=== PATIENT | male | born 1980 | race African-American/Black ===

== ENCOUNTER 2019-09-01 09:05 | Emergency (ER) | payer BC ==
[~2019-09-01] VITALS: Ht 182.9 cm; Wt 200.6 kg
[2019-09-01 09:21] VITALS: BP 185/114
[2019-09-01] MEDS ORDERED: BUPIVACAINE MPF 0.25% 10 ML VIAL. IJ ONE (09:30)
--- NOTE | 2019-09-01 09:41 | PHYS DOC ---
Past Medical History Past Medical History: No Pertinent History Past Surgical History: No Surgical History Smoking Status: Never Smoker Alcohol Use: None Adult General Chief Complaint Chief Complaint: HEADACHE HPI HPI Patient is a 38 year old male patient who presents with left ear, left jaw pain. States he had been at [facility] earlier this morning, had been given prescription for antibiotic for a dental monae. States he has had this discomfort on and off for the last week or so, has been taking 600 to 800 mg of Aleve every 6 hours, had been given a Tylenol at [facility] earlier, and had been given a Tylenol at [facility] earlier. States he does feel little bit better, however he does have some discomfort of his left ear still. States he was little concerned over his blood pressure when he was there, it was higher than he thought. States it was 168/states he has not has blood pressure checked for quite a long time before coming to [facility] or coming here today. States he does not have a primary care provider. Review of Systems Review of Systems Constitutional: Denies fever or chills [] HENT: Denies nasal congestion or sore throat states pain to left lower posterior tooth [] Respiratory: Denies cough or shortness of breath [] Cardiovascular: No additional information not addressed in HPI [] GI: Denies abdominal pain, nausea, vomiting, bloody stools or diarrhea [] : Denies dysuria or hematuria [] Musculoskeletal: Denies back pain or joint pain [] Integument: Denies rash or skin lesions [] Neurologic: Denies focal weakness or sensory changes, reports headache associated with his ear pain [] Endocrine: Denies polyuria or polydipsia [] All other systems were reviewed and found to be within normal limits, except as documented in this note. Current Medications Current Medications Current Medications Medications (Trade) Dose Ordered Sig/Laura Start Time Stop Time Status Last Admin Dose Admin Bupivacaine HCl (Sensorcaine-Mpf 0.25%) 10 ml 1X ONCE 09/01/19 09:30 09/01/19 09:34 DC 09/01/19 09:30 10 ML Allergies Allergies Allergies Coded Allergies Type Severity Reaction Last Updated Verified No Known Drug Allergies 09/01/19 No Physical Exam Physical Exam Constitutional: Well developed, well nourished, no acute distress, non-toxic appearance. Obese [] HENT: Normocephalic, atraumatic, bilateral external ears normal, oropharynx moist, no oral exudates, nose normal. Noted Monae to tooth #32, no abscess, no tenderness to gum noted. [] Eyes: PERRLA, EOMI, conjunctiva normal, no discharge. [] Neck: Normal range of motion, no tenderness, supple, no stridor. [] Cardiovascular:Heart rate regular rhythm, no murmur [] Lungs & Thorax: Bilateral breath sounds clear to auscultation [] Abdomen: Bowel sounds normal, soft, no tenderness, no masses, no pulsatile masses. [] Skin: Warm, dry, no erythema, no rash. [] Neurologic: Alert and oriented X 3, normal motor function, normal sensory function, no focal deficits noted. [] Psychologic: Affect normal, judgement normal, mood normal. [] Current Patient Data Vital Signs Vital Signs Date Time Temp Pulse Resp B/P (MAP) Pulse Ox O2 Delivery O2 Flow Rate FiO2 09/01/19 09:21 97.4 73 18 185/114 (137) 97 Room Air 97.4 EKG EKG [] Radiology/Procedures Radiology/Procedures [] Course & Med Decision Making Course & Med Decision Making Pertinent Labs and Imaging studies reviewed. (See chart for details) [Discussed discomfort with patient, likely resulting to his his dental issue. Patient has prescription for antibiotics he just does not feel that yet. Discussed with patient taking NSAIDs or Tylenol for his discomfort, this may also increase his blood pressure. With his discomfort and use of NSAIDs, his blood pressure is likely elevated. Discussed importance of following up with primary care provider to monitor blood pressure, as is generally documented to start blood pressure medications with a single blood pressure and no follow-up available. Patient in agreement with this plan. Offered basic labs, patient states no I will be okay. Offer patient dental block for discomfort, agreeable. Dental block to left lower mandible, using 3 ml 0.25% bupivicaine. Well tolerated by patient with relief reported. Advised on making sure he is not biting his cheek or tongue, advise to make sure he stays ahead of pain medications and takes the antibiotic previously prescribed. Patient agreeable to this plan. ] Dragon Disclaimer Dragon Disclaimer This electronic medical record was generated, in whole or in part, using a voice recognition dictation system. Departure Departure Impression: Primary Impression: Dentalgia Disposition: HOME, SELF-CARE Condition: STABLE Patient Instructions: Dental Caries, Dental Pain Additional Instructions: As discussed, when you get back to [place] try to find a primary care provider who can follow-up with your blood pressure. Again as we discussed we do not like to start people on blood pressure medications for a single elevated blood pressure reading here, as well as without availability of follow-up. When you start taking blood pressure medications, it is important to have somebody monitor blood pressure and to make sure it is improving your blood pressure. Continue to take the antibiotics that were prescribed to you earlier. Continue to take Tylenol or ibuprofen as needed for your discomfort. MITCHELL MONTE APRN Sep 01, 2019 09:41
== END 2019-09-01 10:24 | disposition home or self-care (01) ==
LOC: ER 09:05
DX: K08.89 Other specified disorders of teeth and supporting structures (principal); H92.01 Otalgia, right ear; R51 Headache; R68.84 Jaw pain
CPT/HCPCS: 64400; 99284; J3490